=== PATIENT | male | born 1955 | race Caucasian/White ===

== ENCOUNTER → 2021-01-04 | Outpatient (CLI) | payer BC ==
--- NOTE | 2021-01-04 13:05 | Diagnostic Imaging Report ---
INDICATION: Bilateral knee pain. Eight views. FINDINGS: Right knee shows moderate narrowing in the medial compartment. There is mild irregularity of the articulating surface of the medial femoral condyle. Mild hypertrophic changes noted both medially and laterally. The patellofemoral joint is in good alignment with normal contour of the trochlea. There are hypertrophic changes. Left knee shows narrowing of the medial compartment with irregularity of the articulating surface. Hypertrophic bony changes are present throughout the knee. The patellofemoral joint shows good alignment with hypertrophic changes. 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 Dictated by: Dictated on workstation # [id number]
== END ==
LOC: ORTHO 11:20
PROVIDERS: ATTEND Orthopaedic Surgery
DX: M17.11 Unilateral primary osteoarthritis, right knee (principal); M17.12 Unilateral primary osteoarthritis, left knee
CPT/HCPCS: 99202

== ENCOUNTER → 2021-01-18 | Outpatient (CLI) | payer BC | LOC: ORTHO 14:10 | PROVIDERS: ATTEND Orthopaedic Surgery | DX: M17.0 Bilateral primary osteoarthritis of knee (principal) ==